=== PATIENT | male | born 1970 | race Caucasian/White ===

== ENCOUNTER 2020-07-14 17:10 | Emergency (ER) | payer OTHER ==
[2020-07-14] MEDS ORDERED: Boostrix 0.5 ML (Tdap) VIAL ONE (17:21)
[2020-07-14] MEDS ORDERED: Lidocaine 1% PF 5 ML VIAL ONE (17:21)
[2020-07-14] MEDS ORDERED: Acetaminophen/Codeine 30-300mg Tablet ONE (18:20)
[2020-07-14] MEDS ORDERED: Ondansetron ODT 4 MG TAB ONE (18:20)
[2020-07-14] MEDS ORDERED: Sulfameth/Trimethoprim DS 800-160mg TAB ONE (18:20)
== END 2020-07-14 18:27 | disposition home or self-care (01) ==
LOC: BURERS 17:10
DX: S62.522B Displaced fracture of distal phalanx of left thumb, initial encounter for open fracture (principal); F17.290 Nicotine dependence, other tobacco product, uncomplicated; Z23 Encounter for immunization; W23.0XXA Caught, crushed, jammed, or pinched between moving objects, initial encounter
CPT/HCPCS: 11760; 90471; 90715; Q0162